=== PATIENT | male | born 1995 | race Two or more races ===

== ENCOUNTER 2021-02-25 22:14 | Emergency (ER) | payer OTHER ==
[~2021-02-25] VITALS: Ht 175.3 cm; Wt 63.6 kg
[2021-02-25] MEDS ORDERED: KETOROLAC 60 MG/2 ML VIAL. IM ONE (23:30)
[2021-02-25] MEDS ORDERED: MORPHINE SULFATE 2 MG/ML INJ. IVP ONE (23:30)
--- NOTE | 2021-02-26 00:09 | PHYS DOC ---
Past Medical History Additional Past Medical Histor: COVID-19 X2 Past Surgical History: No Surgical History Smoking Status: Never Smoker Alcohol Use: Occasionally General Adult EDM: Chief Complaint: BACK PAIN OR INJURY HPI: HPI: Patient is a 26 year old male who presents from work at a [employer] facility with complaint of severe low back pain after attempting to lift a very heavy box. Patient states that he did not know how heavy the box was, when he went to lift it he had sudden onset of severe low back pain. He states he was unable to sit, but standing was also uncomfortable. He reports 2 episodes of emesis secondary to the degree of pain which she was experiencing. He denies saddle anesthesia, lower extremity paresthesias, bowel or bladder incontinence, or prior injury. Review of Systems: Review of Systems: ROS negative except as mentioned in HPI. Heart Score: C/O Chest Pain: No Current Medications: Current Medications Medications (Trade) Dose Ordered Sig/Fany Start Time Stop Time Status Last Admin Dose Admin Ketorolac Tromethamine (Toradol Im) 60 mg 1X ONCE 02/25/21 23:30 02/25/21 23:31 DC 02/25/21 22:53 60 MG Morphine Sulfate (Morphine Sulfate) 2 mg 1X ONCE 02/25/21 23:30 02/25/21 23:31 DC 02/25/21 23:20 2 MG Orphenadrine Citrate (Norflex) 30 mg 1X ONCE 02/26/21 00:30 02/26/21 00:31 DC 02/26/21 00:19 30 MG Allergies: Allergies: Allergies Coded Allergies Type Severity Reaction Last Updated Verified No Known Drug Allergies 02/25/21 No Physical Exam: PE: Constitutional: Well developed, well nourished, in obvious pain, non-toxic appearance. Cardiovascular: Heart rate regular rhythm, no murmur. Lungs & Thorax: Bilateral breath sounds clear to auscultation. Skin: Warm, dry, no erythema, no rash, no abrasion, no laceration. Back: Midline tenderness appreciated in the lumbosacral region, exquisitely tender upon movement. Extremities: No tenderness, no cyanosis, no clubbing, ROM intact, no edema. Neurologic: Alert and oriented x4, no focal deficits noted, straight leg raise test negative bilaterally. Current Patient Data: Vital Signs: Vital Signs Date Time Temp Pulse Resp B/P (MAP) Pulse Ox O2 Delivery O2 Flow Rate FiO2 02/25/21 23:59 99 Room Air 02/25/21 23:54 54 20 110/56 (74) 97 Room Air 02/25/21 23:41 56 16 122/58 (79) 98 Room Air 02/25/21 23:20 18 99 Room Air 02/25/21 23:02 60 16 124/58 (80) 99 Room Air 02/25/21 22:22 99.1 57 18 119/55 (76) 96 Room Air 99.1 Radiology/Procedures: Radiology/Procedures: PROCEDURE: CT LUMBAR SPINE WO CONTRAST EXAM: CT lumbar spine without contrast. HISTORY: Pain after injury. TECHNIQUE: CT of the lumbar spine was performed without intravenous contrast. One or more of the following individualized dose reduction techniques were utilized for this examination: 1. Automated exposure control. 2. Adjustment of the mA and/or kV according to patient size. 3. Use of iterative reconstruction technique. COMPARISON: None. FINDINGS: No fractures are identified. Alignment is normal. There is mild loss of intervertebral disc height at L4-5. From T12-L4, there is no stenosis. At L4-5, there is a moderate posterior disc bulge, likely with a superimposed central and right paracentral disc protrusion. This mildly effaces the anterior thecal sac and results in at least mild right lateral recess narrowing. At L5-S1, a moderate central superior extrusion is suspected. This does not result in significant stenosis. IMPRESSION: 1. There is herniation at L4-S1 results in right lateral recess stenosis at L4- 5. MRI could further assess disc herniations and stenosis if there is persistent concern. 2. Mild degenerative disc disease at L4-5. Electronically signed by: Jozef Murphy MD (02/26/2021 12:31 AM) [facility] Course & Med Decision Making: Course & Med Decision Making Pertinent Labs and Imaging studies reviewed. (See chart for details) Patient is an otherwise healthy 26-year-old male who presents with a low back injury secondary to heavy lifting. I discussed imaging modalities with the patient and his father at bedside. Risk versus benefit of CT imaging was discussed with them, including that imaging of choice due to patient's mechanism of injury would be MRI and the risk of radiation associated with CT imaging. CT lumbar spine ordered in shared decision making. CT imaging shows disc herniations at L4/L5 and L5/S1. Treatment plan at this time will be pain control and follow-up with pain management. Patient given return precautions. Patient and his family at bedside understand and are agreeable to discharge plan. Swati Disclaimer: Swati Disclaimer: This electronic medical record was generated, in whole or in part, using a voice recognition dictation system. Departure Departure Impression: Primary Impression: Acute herniated disc Additional Impression: Acute lumbar myofascial strain Qualified Codes: S39.012A - Strain of muscle, fascia and tendon of lower back, initial encounter Disposition: HOME / SELF CARE / HOMELESS Condition: STABLE Referrals: NO PCP (PCP) SANTHOSH KAN MD Patient Instructions: Herniated Disk-Brief, Muscle Strain, Ouma-kh-Bnns, Opiate Dependence Additional Instructions: As discussed, CT imaging today shows herniated disks in your low back. You also have muscle strain in your low back. I have provided provided contact information for Dr. Kan, who is a paint roller cover machine setter. He can determine if any further imaging is needed and can assist in further treatment plan. Return to the emergency department if your pain is uncontrolled at home, your symptoms do not improve over the course of the next few days or you develop any new symptoms or concerns. For pain control, you are prescribed hydrocodone 5 mg and Norflex. The Norflex is a muscle relaxer, which you can take every 12 hours as needed for your low back pain. The hydrocodone is for short term use only. You should take the hydrocodone when [id number] pain medications combined with Norflex are not sufficient for pain control. Scripts Hydrocodone Bit/Acetaminophen (HYDROCODONE-APAP 5-325 ) 1 Tab Tablet 1 TAB PO PRN Q6HRS PRN for PAIN, #20 TAB 0 Refills Prov: ROSAURA PALOMARES 02/26/21 Orphenadrine Citrate (ORPHENADRINE CITRATE) 100 Mg Tablet.er 1 TAB PO PRN Q12HR PRN for MUSCLE PAIN, #30 TAB 1 Refill Prov: ROSAURA PALOMARES 02/26/21 ROSAURA PALOMARES Feb 26, 2021 00:09
[2021-02-26] MEDS ORDERED: ORPHENADRINE CITRATE 60 MG/2 ML VIAL. IV ONE (00:30)
[2021-02-26] MEDS ORDERED: ORPHENADRINE CITRATE 60 MG/2 ML VIAL. IM ONE (00:30)
--- NOTE | 2021-02-26 00:33 | RAD ---
EXAM: CT lumbar spine without contrast. HISTORY: Pain after injury. TECHNIQUE: CT of the lumbar spine was performed without intravenous contrast. One or more of the foll owing individualized dose reduction techniques were utilized for this examination: 1. Automated exposure control. 2. Adjustment of the mA and/or kV according to patient size. 3. Use of iterative reconstruction technique. COMPARISON: None. FINDINGS: No fractures are identified. Alignment is normal. There is mild loss of intervertebral disc height at L4-5. From T12-L4, there is no stenosis. At L4-5, there is a moderate posterior disc bulge, likely with a superimposed central and right parac entral disc protrusion. This mildly effaces the anterior thecal sac and results in at least mild righ t lateral recess narrowing. At L5-S1, a moderate central superior extrusion is suspected. This does not result in significant star nosis. IMPRESSION: 1. There is herniation at L4-S1 results in right lateral recess stenosis at L4-5. MRI could further a ssess disc herniations and stenosis if there is persistent concern. 2. Mild degenerative disc disease at L4-5. Electronically signed by: Jozef Murphy MD (02/26/2021 12:31 AM) [facility]
[2021-02-26 00:54] VITALS: BP 105/59
[2021-02-26] MEDS ORDERED: ORPH100T PO (00:56)
[2021-02-26] MEDS ORDERED: HYDR-2761 PO (00:56)
== END 2021-02-26 01:15 | disposition home or self-care (01) ==
LOC: ER 22:14
DX: S39.012A Strain of muscle, fascia and tendon of lower back, initial encounter (principal); M51.27 Other intervertebral disc displacement, lumbosacral region; R11.10 Vomiting, unspecified; X50.0XXA Overexertion from strenuous movement or load, initial encounter; Y93.89 Activity, other specified; Y92.69 Other specified industrial and construction area as the place of occurrence of the external cause; Y99.0 Civilian activity done for income or pay
CPT/HCPCS: 72131; 96372; 96374; 96375; 99285; J1885; J2270; J2360

== ENCOUNTER 2021-05-03 16:17 | Emergency (ER) | payer SELFPAY ==
[~2021-05-03] VITALS: Ht 172.7 cm; Wt 65.5 kg
[~2021-05-03 16:17] MED LIST: HYDR-2761 PO; ORPH100T PO
[2021-05-03] MEDS ORDERED: KETOROLAC 60 MG/2 ML VIAL. IM ONE (17:00)
[2021-05-03] MEDS ORDERED: ORPHENADRINE CITRATE 60 MG/2 ML VIAL. IM ONE (17:00)
--- NOTE | 2021-05-03 17:05 | PHYS DOC ---
Past Medical History Additional Past Medical Histor: COVID-19 X2, herniated disks lumbar spine (ROSAURA PALOMARES) Past Surgical History: No Surgical History (ROSAURA PALOMARES) Smoking Status: Never Smoker Alcohol Use: Rarely (ROSAURA PALOMARES) General Adult EDM: Chief Complaint: BACK PAIN OR INJURY HPI: HPI: Patient is a 26 year old male who presents with persistent and worsening back pain from 2 herniated disks. Patient was seen in February after a work injury, and when she was found to have disc herniations at the level of L4/L5 and L5/S1. Patient reports he followed up with the assigned doctors through [employer]. He states that he was supposed to have some injections done for pain, but they were denied. Patient states no additional imaging was performed, despite the fact that MRI was recommended. Patient now has paresthesias that go down the back of his legs to the level of the knee and is unable to perform his work duties secondary to his pain. Patient denies saddle anesthesia, incontinence to bowel or bladder, any new injury. (ROSAURA PALOMARES) Review of Systems: Review of Systems: Constitutional: Denies fever, chills or generalized weakness Eyes: Denies change in visual acuity, visual field deficits or discharge HENT: Denies ear pain, nasal congestion or sore throat Respiratory: Denies cough or shortness of breath Cardiovascular: Denies chest pain, palpitations or edema GI: Denies abdominal pain, nausea, vomiting, bloody stools or diarrhea : Denies dysuria or hematuria Musculoskeletal: See HPI Integument: Denies rash or other skin lesion Neurologic: See HPI (ROSAURA PALOMARES) Heart Score: C/O Chest Pain: No (ROSAURA PALOMARES) Current Medications: Current Medications Medications (Trade) Dose Ordered Sig/Fany Start Time Stop Time Status Last Admin Dose Admin Ketorolac Tromethamine (Toradol Im) 60 mg 1X ONCE 05/03/21 17:00 05/03/21 17:01 Orphenadrine Citrate (Norflex) 60 mg 1X ONCE 05/03/21 17:00 05/03/21 17:01 (ROSAURA PALOMARES) Allergies: Allergies: Allergies Coded Allergies Type Severity Reaction Last Updated Verified No Known Drug Allergies 02/25/21 No (ROSAURA PALOMARES) Physical Exam: PE: Constitutional: Well developed, well nourished, no acute distress, non-toxic appearance, patient clearly in pain. HENT: Normocephalic, atraumatic, bilateral external ears normal, nose normal. Eyes: PERRL, EOMI, conjunctiva normal, no discharge. Neck: Normal range of motion, no tenderness, supple, no stridor. Skin: Warm, dry, no erythema, no rash. Back: No tenderness, no CVA tenderness. Extremities: No tenderness, no cyanosis, no clubbing, ROM intact though painful in the low back, no edema. Neurologic: Alert and oriented x4, no focal deficits noted, straight leg raise test positive at 40 degrees bilaterally with pain extending to the knee, sensation intact, rectal sphincter tone intact. (ROSAURA PALOMARES) Current Patient Data: Vital Signs: Vital Signs Date Time Temp Pulse Resp B/P (MAP) Pulse Ox O2 Delivery O2 Flow Rate FiO2 05/03/21 16:26 98.0 103 18 133/60 (84) 97 Room Air 98.0 (ROSAURA PALOMARES) Radiology/Procedures: Radiology/Procedures: [] (ROSAURA PALOMARES) Radiology/Procedures: IMAGING REPORT Signed PATIENT: TESSY AGUILERA ACCOUNT: [id number] : 1995 LOCATION: ER AGE: 26 SEX: M EXAM STATUS: REG ER ORD. PHYSICIAN: ROSAURA PALOMARES REASON: worsening pain from herniated discs, positive straigt leg raise bilaterally PROCEDURE: LUMBAR SPINE WO CONTRAST Exam: MRI lumbar spine without contrast INDICATION: Worsening pain from the herniated disc TECHNIQUE: Multiplanar multisequence MRI of the lumbar spine was obtained without the administration of IV contrast Comparisons: CT 04/28/2020 FINDINGS: Vertebral body heights are well-maintained. Straightening of lumbar spine which may be positional. Bone marrow signal is normal. Spinal cord has normal course, caliber and signal. Conus medullaris terminates at the T12-L1 level. L4-L5: There is a right paracentral disc protrusion which extends into the right lateral recess compressing the descending right L5 nerve root. Visualized paraspinal soft tissues are unremarkable. 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 Electronically signed by: Matthieu Nino MD (05/03/2021 9:07 PM) [facility] DICTATED and SIGNED BY: MATTHIEU NINO MD DATE: 05/03/21 [id number] (APPLE DE LEON DO) Course & Med Decision Making: Course & Med Decision Making Pertinent Labs and Imaging studies reviewed. (See chart for details) Patient is a 26-year-old male with known disc herniations who presents with persistent pain and worsening neurological symptoms. Patient was unable to obtain an MRI despite going through appropriate channels. Due to the fact that he has new neurological symptoms in the setting of known disc herniation, MRI was ordered. Approval from neurosurgery to perform lumbar MRI obtained. Patient care was transferred to Dr. De Leon upon my leaving the department. She is verbally updated on patient case and agrees to follow-up on imaging results. (ROSAURA PALOMARES) Course & Med Decision Making This patient was initially seen by the physician bilingual executive assistant. Please see her note for details of HPI and H&P. I assumed care at 2100 tonight. MRI of the spine was pending at time of transfer of care. See results above. The patient has reportedly never been given steroids. His pain is been ongoing for 5 months. He is being seen by work comp physicians, and his appointment in 2 weeks with her pain management. He has a nonfocal neurologic exam. He is ambulatory. He reports radiculopathy symptoms of his left lower extremity. MRI does demonstrate spondylolytic changes lumbar spine greatest at L4/L5. I have discussed all of this with the patient. I told him to keep his scheduled appointment in 2 weeks with his pain management physician. He should also follow-up with a primary care physician as well. He was previously prescribed h ydrocodone. He has not been taking anything for pain recently. I told him I give him a very small number of pain medications upon discharge. He was given intramuscular morphine here, he reported relief. He asked me if he thought he should return to work at all. I told him that I can provide a work note for tomorrow, but he reports he is not working tomorrow, he does not reportedly go back to work until Friday. I told him that he should discuss any further work- related issues with his physicians at [facility] and his primary care physician. Return precautions are given. (APPLE DE LEON DO) [place] Disclaimer: Swati Disclaimer: This electronic medical record was generated, in whole or in part, using a voice recognition dictation system. (ROSAURA PALOMARES) Departure Departure Impression: Primary Impression: Low back pain due to displacement of intervertebral disc Additional Impressions: Sciatica due to displacement of lumbar intervertebral disc Lumbar radiculopathy Disposition: HOME / SELF CARE / HOMELESS Condition: STABLE Referrals: NO PCP (PCP) Patient Instructions: Lumbosacral Radiculopathy Additional Instructions: Take the prescribed medications as directed. Only use the pain medication for severe pain. Please follow-up as scheduled with your work comp physicians. Return to the ER for temperature 100.4 or higher, if you are newly you are acutely injured, if you develop paralysis or motor weakness, if you develop incontinence of urine or stool or for any other concerns. Scripts Prednisone (PREDNISONE) 50 Mg Tablet 1 TAB PO DAILY for 4 Days, #4 TAB start next dose 05/04/21 Prov: APPLE DE LEON DO 05/03/21 Hydrocodone Bit/Acetaminophen (HYDROCODONE-APAP 5-325 ) 1 Tab Tablet 1 TAB PO PRN Q6HRS PRN for PAIN, #10 TAB 0 Refills Prov: APPLE DE LEON DO 05/03/21 ROSAURA PALOMARES May 03, 2021 17:05 APPLE DE LEON DO May 03, 2021 21:43
[2021-05-03 17:51] LABS: BILIRUBIN,URINE NEGATIVE (NEG); CLARITY,URINE CLOUDY; COLOR,URINE YELLOW; NITRITE,URINE NEGATIVE (NEG); PH,URINE 7.5 (<5.0-8.0); PROTEIN,URINE NEGATIVE (NEG-TRACE)
[2021-05-03 18:01] LABS: BACTERIA,URINE FEW /HPF (0-FEW); SPERM,URINE PRESENT /HPF
[2021-05-03 18:02] LABS: RBC,URINE 0 /HPF (0-2)
[2021-05-03] MEDS ORDERED: fentaNYL PF VIAL 100 MCG/2 ML VIAL IVP ONE (20:00)
[2021-05-03] MEDS ORDERED: MORPHINE SULFATE 2 MG/ML INJ. IM ONE (20:45)
--- NOTE | 2021-05-03 21:10 | RAD ---
Exam: MRI lumbar spine without contrast INDICATION: Worsening pain from the herniated disc TECHNIQUE: Multiplanar multisequence MRI of the lumbar spine was obtained without the administration of IV contrast Comparisons: CT 04/28/2020 FINDINGS: Vertebral body heights are well-maintained. Straightening of lumbar spine which may be positional. Bone marrow signal is normal. Spinal cord has normal course, caliber and signal. Conus medullaris terminates at the T12-L1 level. L4-L5: There is a right paracentral disc protrusion which extends into the right lateral recess compr essing the descending right L5 nerve root. Visualized paraspinal soft tissues are unremarkable. 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 Electronically signed by: Matthieu Esparza MD (05/03/2021 9:07 PM) [facility]
[2021-05-03] MEDS ORDERED: PRED50TA PO (21:42)
[2021-05-03] MEDS ORDERED: HYDR-2761 PO (21:42)
[2021-05-03 21:58] VITALS: BP 128/64
[2021-05-03] MEDS ORDERED: predniSONE 10 MG TABLET PO ONE (22:00)
== END 2021-05-03 22:09 | disposition home or self-care (01) ==
LOC: ER 16:17
DX: M51.16 Intervertebral disc disorders with radiculopathy, lumbar region (principal)
CPT/HCPCS: 72148; 81001; 96372; 99285; J1885; J2270; J2360; J7512